=== PATIENT | male | born 1965 | race African-American/Black ===

== ENCOUNTER 2019-05-01 13:48 | Inpatient (IN) ==
[2019-05-01 14:15] LABS: Basophils # 0.1 10*3/uL (0.0-0.2); Basophils % 1.4 % (0.0-0.8); Eosinophils # 0.1 10*3/uL (0.0-0.87); Eosinophils % 1.4 % (0.00-10.9); Hematocrit 35.3 VOL% (42.0-52.0); Immature Granulocytes % 0.2 %; Immature Granulocytes Absolute 0.01 #; Lymphocytes % 23.7 % (21.2-54.2); Mean Corpuscular Volume 92.7 FL (87-102); Mean Platelet Volume 9.1 FL (9.6-12.0); Monocytes % 7.9 % (1.7-12.7); Neutrophils % 65.4 % (38.7-73.9); Platelet Count 219 T/CUMM (130-400); Red Blood Count 3.81 MC/CUMM (3.8-5.5); Red Cell Distribution Width 12.3 % (9.3-17.3); White Blood Count 4.2 T/CUMM (4-12)
[2019-05-01 14:27] LABS: INR 0.9; PT Patient Result 10.3 SECS (9.6-12.2); Partial Thromboplastin Time < 21.0 SECS (20.8-36.0)
[2019-05-01 14:30] LABS: Calcium 8.9 MG/DL (8.5-10.1); Osmolality,Calculated 282.4 MOS/KG (273-304)
[2019-05-01] MEDS ORDERED: LIDOCAINE 2% TOP JELLY 5 ML TUBE TOP ONE (16:13)
[2019-05-01] MEDS ORDERED: LIDOCAINE 1%/EPI INJ 20 ML VIAL ONE (16:13)
[2019-05-01] MEDS ORDERED: TISSUE ADHESIVE 1 EACH APPLICATOR TOP ONE (16:41)
[2019-05-01] MEDS ORDERED: diphenhydrAMINE 50 MG/1 ML VIAL IV PRN (16:57)
[2019-05-01] MEDS ORDERED: ONDANSETRON 4 MG/2 ML VIAL IV PRN (16:57)
[2019-05-01] MEDS ORDERED: MORPHINE 4 MG/1 ML VIAL IV PRN (17:02)
[2019-05-01] MEDS: LACTATED RINGERS 1,000 ML IV SCH (17:33)
[2019-05-01] MEDS: KETOROLAC 15 MG/1 ML VIAL IV PRN (18:23)
[2019-05-01] MEDS ORDERED: INFLUENZA VIRUS VACCINE 0.5 ML SYRINGE IM ONE (18:24)
[2019-05-01] MEDS: cefTRIAXone 1,000 MG in SYRINGE 1 EACH IV SCH (21:03)
[2019-05-01] MEDS: CALCIUM (CARBONATE) 500 MG TABLET PO SCH (21:52)
[2019-05-01] MEDS: TROLAMINE SALICYLATE 10% CREAM 85 GM TUBE TOP SCH (21:58)
[2019-05-01] MEDS: DEXAMETHASONE 4 MG/1 ML VIAL IV SCH (23:03)
[2019-05-02] MEDS: POLYVINYL ALCOHOL 1.4% OPH SOLN 15 ML BOTTLE BOTH EYES PRN ×2 (03:08→12:00)
[2019-05-02] MEDS: KETOROLAC 15 MG/1 ML VIAL IV PRN ×2 (05:22→20:08)
[2019-05-02] MEDS: LACTATED RINGERS 1,000 ML IV SCH ×2 (06:04→17:42)
[2019-05-02] MEDS: DEXAMETHASONE 4 MG/1 ML VIAL IV SCH ×3 (06:25→22:40)
[2019-05-02] MEDS ORDERED: SULFAMETHOX/TRIMETHOPRIM 400-80 MG TABLET PO SCH (08:00)
[2019-05-02] MEDS ORDERED: PANTOPRAZOLE 40 MG VIAL IV SCH (09:00)
[2019-05-02] MEDS: hydroCHLOROthiazide 12.5 MG CAPSULE PO SCH (09:26)
[2019-05-02] MEDS: FAMOTIDINE 20 MG TABLET PO SCH (09:26)
[2019-05-02] MEDS: cefTRIAXone 1,000 MG in SYRINGE 1 EACH IV SCH ×2 (09:26→20:08)
[2019-05-02] MEDS: amLODIPine 2.5 MG TABLET PO SCH (09:26)
[2019-05-02] MEDS: CALCIUM (CARBONATE) 500 MG TABLET PO SCH ×4 (09:26→20:08)
[2019-05-02] MEDS: MOISTURIZING CREAM (EUCERIN) 106 GM JAR TOP SCH ×2 (10:33→12:00)
[2019-05-02] MEDS: TROLAMINE SALICYLATE 10% CREAM 85 GM TUBE TOP SCH ×3 (10:33→20:09)
[2019-05-02] MEDS: SULFAMETHOX/TRIMETHOPRIM 800-160 MG TABLET PO SCH (20:08)
[2019-05-03] MEDS: KETOROLAC 15 MG/1 ML VIAL IV PRN ×2 (04:37→17:06)
[2019-05-03] MEDS: LACTATED RINGERS 1,000 ML IV SCH (04:40)
[2019-05-03] MEDS: TROLAMINE SALICYLATE 10% CREAM 85 GM TUBE TOP SCH ×3 (08:18→22:10)
[2019-05-03] MEDS: cefTRIAXone 1,000 MG in SYRINGE 1 EACH IV SCH ×2 (08:18→22:10)
[2019-05-03] MEDS: SULFAMETHOX/TRIMETHOPRIM 800-160 MG TABLET PO SCH ×2 (08:18→22:08)
[2019-05-03] MEDS: CALCIUM (CARBONATE) 500 MG TABLET PO SCH ×4 (08:18→22:08)
[2019-05-03] MEDS: FAMOTIDINE 20 MG TABLET PO SCH ×2 (08:19→22:08)
[2019-05-03] MEDS: MOISTURIZING CREAM (EUCERIN) 106 GM JAR TOP SCH (08:19)
[2019-05-03] MEDS: hydroCHLOROthiazide 12.5 MG CAPSULE PO SCH (08:19)
[2019-05-03] MEDS: amLODIPine 2.5 MG TABLET PO SCH (08:19)
[2019-05-04 06:04] LABS: Basophils # 0.1 10*3/uL (0.0-0.2); Basophils % 0.6 % (0.0-0.8); Eosinophils % 0.4 % (0.00-10.9); Hematocrit 32.1 VOL% (42.0-52.0); Hemoglobin 10.9 GM/DL (14.0-18.0); Immature Granulocytes % 0.1 %; Immature Granulocytes Absolute 0.01 #; Lymphocytes # 1.7 10*3/uL (1.4-4.0); Lymphocytes % 21.7 % (21.2-54.2); Mean Corpuscular Volume 93.9 FL (87-102); Mean Platelet Volume 9.1 FL (9.6-12.0); Monocytes % 6.6 % (1.7-12.7); Neutrophils % 70.6 % (38.7-73.9); Platelet Count 202 T/CUMM (130-400); Red Blood Count 3.42 MC/CUMM (3.8-5.5); Red Cell Distribution Width 12.7 % (9.3-17.3); White Blood Count 7.8 T/CUMM (4-12)
[2019-05-04 06:19] LABS: Calcium 8.9 MG/DL (8.5-10.1); Osmolality,Calculated 280.3 MOS/KG (273-304)
[2019-05-04] MEDS: FAMOTIDINE 20 MG TABLET PO SCH (09:39)
[2019-05-04] MEDS: amLODIPine 2.5 MG TABLET PO SCH (09:39)
[2019-05-04] MEDS: cefTRIAXone 1,000 MG in SYRINGE 1 EACH IV SCH (09:40)
[2019-05-04] MEDS: hydroCHLOROthiazide 12.5 MG CAPSULE PO SCH (09:40)
[2019-05-04] MEDS: CALCIUM (CARBONATE) 500 MG TABLET PO SCH (09:40)
[2019-05-04] MEDS: SULFAMETHOX/TRIMETHOPRIM 800-160 MG TABLET PO SCH (09:40)
[2019-05-04] MEDS: TROLAMINE SALICYLATE 10% CREAM 85 GM TUBE TOP SCH (10:46)
[2019-05-04] MEDS: MOISTURIZING CREAM (EUCERIN) 106 GM JAR TOP SCH (10:47)
[2019-05-04 11:42] VITALS: BP 121/79
== END 2019-05-04 14:40 | DRG 164 ==
LOC: N.ED 13:48 → N.EDINP 16:57 → N.ICU 18:00 → N.3W 05-03 00:05
PROVIDERS: ADMIT Otolaryngology; ATTEND Otolaryngology